=== PATIENT | female | born 1960 ===

== ENCOUNTER 2019-02-13 13:43 | Emergency (ER) | payer OTHER ==
[2019-02-13 13:51] VITALS: TEMP 99.2; O2SAT 99
[2019-02-13] MEDS ORDERED: Sodium Chloride 0.9% 1,000 ML IV STA (14:38)
--- NOTE | 2019-02-13 14:59 | ED PDOC ---
History of Present Illness History of Present Illness: 58 y/o female presents to the ER complaining of flu like symptoms since Friday. Patient states she has had decreased appetite. Since 16:00, patient reports she keeps spitting up large amounts of phlegm but not coughing or vomiting. She reports chills, malaise, fatigue, and body aches and denies fever, abdominal pain, or diarrhea. Of note, patient's grandson is sick with a fever and was diagnosed with an ear infection. Patient denies any recent travel. PMD: [facility] HPI: Influenza Time Seen by Provider: 02/13/19 14:05 Chief Complaint: Flu-like Symptoms Chief Complaint (Provider): Flu-like Symptoms History Per: Patient Exam Limitations: no limitations Onset/Duration Of Symptoms: Days (x2) Symptoms include: bodyaches. denies: fever, vomiting, diarrhea Past Medical History Reviewed: Historical Data, Nursing Documentation, Vital Signs Vital Signs: Last Vital Signs Temp 99.2 F 02/13/19 13:49 Pulse 107 H 02/13/19 13:49 Resp 18 02/13/19 13:49 BP 115/69 02/13/19 13:49 Pulse Ox 99 02/13/19 13:49 Primary Care Provider: Nino Love - Medical History PMH: COPD Denies: Chronic Kidney Disease - Surgical History Surgical History: (x2) - Family History Family History: States: Diabetes, Hypertension, Other Other Family History: Cancer - Home Medications Home Medications: Ambulatory Orders Medication Instructions Recorded Fluticasone/Vilanterol [Breo 1 puff INH DAILY 12/30/17 Ellipta 100-25 Mcg INH] predniSONE [predniSONE Tab] 10 mg PO DAILY #3 tab 01/01/18 Amoxicillin/Clavulanate [Augmentin 1 tab PO BID #14 tab 02/13/19 875 MG-125 MG] Ondansetron ODT [Zofran ODT] 1 odt PO Q6 PRN #20 odt 02/13/19 - Allergies Allergies/Adverse Reactions: Allergies Allergy/AdvReac Type Severity Reaction Status Date / Time No Known Allergies Allergy Verified 02/13/19 13:48 Review of Systems ROS Statement: Except As Marked, All Systems Reviewed And Found Negative (as per HPI) Constitutional: Positive for: Chills, Malaise (and fatigue), Other (bodyaches). Negative for: Fever Respiratory: Negative for: Cough Gastrointestinal: Negative for: Vomiting, Abdominal Pain, Diarrhea Physical Exam - Reviewed Nursing Documentation Reviewed: Yes Vital Signs Reviewed: Yes - Physical Exam Appears: Positive for: No Acute Distress (tired appearing) Head Exam: Positive for: ATRAUMATIC, NORMOCEPHALIC Skin: Positive for: Warm, Dry Eye Exam: Positive for: EOMI, PERRL ENT: Positive for: Other (Dry mucous membranes) Neck: Positive for: Painless ROM, Supple Cardiovascular/Chest: Positive for: Regular Rate, Rhythm (Regular rhythm), Tachycardia Respiratory: Positive for: Normal Breath Sounds (Clear to auscultation bilaterally). Negative for: Accessory Muscle Use, Wheezing, Respiratory Distress Gastrointestinal/Abdominal: Positive for: Soft. Negative for: Tenderness, Mass, Guarding, Rebound Back: Positive for: Normal Inspection. Negative for: Decreased ROM Extremity: Positive for: Normal ROM. Negative for: Deformity Lymphatic: Negative for: Adenopathy Neurological/Psych: Positive for: Awake, Alert. Negative for: Motor/Sensory Deficits Medical Decision Making Medical Decision Making: Initial Impression: Viral syndrome Differential includes dehydration, pneumonia, and URI Initial Plan: --CMP --Lipase stat --Magnesium stat --Phosphorous stat --ED urine dipstick --CBC --Dextrose 500mL IV --Sodium chloride 1000mL IV --Blood culture stat --Influenza A B stat --Rapid strep Accession No. : [id number] Patient Name / ID : JOE RUIZ / [id number] Exam Date : 02/13/2019 16:04:27 ( Approved ) Study Comment : Sex / Age : F / 58Y Creator : Adonay Kitchen MD Dictator : Adonay Kitchen MD Electronic Systems Technician : [employer] Merchandiser : Adonay Kitchen MD Approver2 : Report Date : 02/13/2019 16:41:20 My Comment : Date of service: 02/13/2019 HISTORY: flu like illness h/o copd COMPARISON: 12/30/2017. TECHNIQUE: Chest PA and lateral views FINDINGS: LUNGS: Hyperinflation, manifestations of COPD. No active pulmonary disease. PLEURA: No significant pleural effusion identified. No pneumothorax apparent. CARDIOVASCULAR: No aortic atherosclerotic calcification present. Normal cardiac size. No pulmonary vascular congestion. OSSEOUS STRUCTURES: No significant abnormalities. VISUALIZED UPPER ABDOMEN: Normal. OTHER FINDINGS: None. IMPRESSION: No active disease. No significant interval change compared to the prior examination(s). ----- Scribe Attestation: Documented by Maximilian Walton acting as a scribe for Darby John MD. Provider Scribe Attestation: All medical record entries made by the Scribe were at my direction and personally dictated by me. I have reviewed the chart and agree that the record accurately reflects my personal performance of the history, physical exam, medical decision making, and the department course for this patient. I have also personally directed, reviewed, and agree with the discharge instructions and d isposition. - Laboratory Results Result Diagrams: 02/13/19 15:50 02/13/19 15:50 - ECG O2 Sat by Pulse Oximetry: 99 (RA) Pulse Ox Interpretation: Normal Disposition - Clinical Impression Clinical Impression: Hypokalemia, Strep throat, Influenza-like symptoms Counseled Patient/Family Regarding: Studies Performed, Diagnosis, Need For Followup, Rx Given - Disposition Disposition: Routine/Home Disposition Time: 16:45 Condition: STABLE Additional Instructions: FOLLOWUP WITH YOUR DOCTOR FRIDAY FOR REEVALUATION Prescriptions: Amoxicillin/Clavulanate [Augmentin 875 MG-125 MG] 1 tab PO BID #14 tab Ondansetron ODT [Zofran ODT] 1 odt PO Q6 PRN #20 odt PRN Reason: Nausea/Vomiting Instructions: Strep Throat (DC) Forms: [facility] ED School/Work Excuse
[2019-02-13 15:55] LABS: BASO % 0.2 % (0.0-2.0); HEMOGLOBIN 11.5 g/dL (12.0-16.0); LYMPH % 5.9 % (20.0-40.0); MEAN CELL VOLUME 85.8 fl (81.0-99.0); MEAN CORPUSCULAR HGB CONC 33.8 g/dL (33.0-37.0); MEAN PLATELET VOLUME 7.5 fl (7.2-11.7); MONO # 0.6 K/uL (0.0-0.8); MONO % 3.3 % (0.0-10.0); NEUT # 16.2 K/uL (1.8-7.0); NEUT % 90.6 % (50.0-75.0); PLATELET COUNT 272 K/uL (130-400); RBC 3.96 Mil/uL (3.80-5.20); RED CELL DISTRIBUTION WIDTH 13.9 % (11.5-14.5); WHITE BLOOD COUNT 17.9 K/uL (4.8-10.8)
[2019-02-13 16:10] LABS: ALB/GLOB RATIO 1.3 (1.0-2.1); ALBUMIN 4.7 g/dL (3.5-5.0); ALT/SGPT 26 U/L (9-52); AST/SGOT 26 U/L (14-36); BLOOD UREA NITROGEN 18 mg/dl (7-17); CALCIUM 9.2 mg/dL (8.4-10.2); GFR NON-AFRICAN AMERICAN > 60; LIPASE 37 U/L (23-300)
[2019-02-13] MEDS ORDERED: Potassium Chloride 20 mEq ER Tab PO STA (16:26)
[2019-02-13] MEDS ORDERED: Amoxicillin-Clav 875-125 mg Tab PO STA (16:26)
--- NOTE | 2019-02-13 16:44 | RAD ---
Date of service: 02/13/2019 HISTORY: flu like illness h/o copd COMPARISON: 12/30/2017. TECHNIQUE: Chest PA and lateral views FINDINGS: LUNGS: Hyperinflation, manifestations of COPD. No active pulmonary disease. PLEURA: No significant pleural effusion identified. No pneumothorax apparent. CARDIOVASCULAR: No aortic atherosclerotic calcification present. Normal cardiac size. No pulmonary vascular congestion. OSSEOUS STRUCTURES: No significant abnormalities. VISUALIZED UPPER ABDOMEN: Normal. OTHER FINDINGS: None. IMPRESSION: No active disease. No significant interval change compared to the prior examination(s).
[2019-02-13] MEDS ORDERED: Amoxicillin-Clav 875-125 mg Tab PO ONE (16:50)
[2019-02-13] MEDS ORDERED: Potassium Chloride 20 mEq ER Tab PO ONE (16:50)
[2019-02-13 17:56] LABS: ANISOCYTOSIS SLIGHT; BANDS 3 % (0-2); LARGE PLATELETS PRESENT; LYMPHOCYTE 9 % (20-50); MONOCYTE 3 % (0-10); NEUTROPHIL 85 % (42-75); PLATELET ESTIMATE NORMAL (NORMAL); TOTAL CELLS COUNTED 100
[2019-02-13 18:37] VITALS: BP 100/57; PULSE 100; RESP 17
== END 2019-02-13 18:10 | disposition home or self-care (01) ==
LOC: H.ER 13:43
DX: J02.0 Streptococcal pharyngitis (principal); E87.6 Hypokalemia; J11.1 Influenza due to unidentified influenza virus with other respiratory manifestations; J44.9 Chronic obstructive pulmonary disease, unspecified
CPT/HCPCS: 71046; 80053; 81025; 83690; 83735; 84100; 85025; 87040; 87430; 87804; 99283; J7030